=== PATIENT | female | born 1945 | race Caucasian/White ===

== ENCOUNTER 2016-10-19 19:27 | Inpatient (IN) | payer BC, OTHER ==
[~2016-10-19] VITALS: Ht 162.6 cm; Wt 66.0 kg
[~2016-10-19 19:27] MED LIST: ASPEC81; DILT-113 PO
[2016-10-19] MEDS ORDERED: ONDANSETRON INJ 2 MG/ML 2 ML VIAL IV STA (19:51)
[2016-10-19] MEDS ORDERED: SODIUM CHLORIDE 0.9% 1000ML 1,000 ML IV STA (19:51)
--- NOTE | 2016-10-19 19:54 | EMERGENCY ROOM VISIT NOTE ---
History Report prepared by Nini: Inna Fernando Under the Supervision of: Dr. Diego Vega D.O. First contact with patient: 19:42 Chief Complaint: ABDOMINAL PAIN Stated Complaint: STOMACH ACHE Nursing Triage Summary: ABdominal pain lasting more than 24 hours. Had two BM in last 24 hours, not constipated. History of Present Illness The patient is a 71 year old female who presents to the Emergency Room with complaints of constant abdominal pain beginning last night. The patient states that most of her pain is in her upper abdomen. She complains of nausea. She denies any vomiting, diarrhea, urinary symptoms, fever, chest pain, shortness of breath, leg swelling, leg pain. She notes that she has a pace maker and has had a tubal ligation. She notes that she had dental surgeries 10 days ago and is on Aspirin. The patient reports that she has had 2 bowel movements in the last 24 hours and took Gas-X and Mylanta without any relief. Source of History: patient Onset: last night Position: abdomen Timing: constant Associated Symptoms: + nausea, No SOB, No chest pain, No diarrhea, No fevers , No urinary symptoms, No vomiting Note: She denies any leg swelling, leg pain. Review of Systems See HPI for pertinent positives & negatives. A total of 10 systems reviewed and were otherwise negative. Past Medical & Surgical Medical Problems: (1) Duodenitis (2) Pacemaker Family History No pertinent family history stated. Social History Smoking Status: Never Smoker Alcohol Use: heavy Drug Use: none Marital Status: Housing Status: lives with significant other Occupation Status: retired Current/Historical Medications Scheduled Aspirin (Aspirin Ec), 81 MG PO DAILY Atorvastatin (Lipitor), 10 MG PO Q2D Diltiazem Hcl Ext Rel (Tiazac), 180 MG PO DAILY Esomeprazole Magnesium (Nexium 24Hr), 20 MG PO DAILY Metoprolol Succinate (Metoprolol Succinate ER), 25 MG PO DAILY Multiple Vitamin (Multivitamin), 1 TAB PO DAILY Scheduled PRN Clobetasol Propionate (Temovate), 1 APPLN TOP 2XWK PRN for UNDECIDED Tramadol (Ultram), 50 MG PO Q12 PRN for Pain Allergies Coded Allergies: Quinidine (Verified Allergy, Intermediate, DIARRHEA & LIVER ALLERGY, ) Clindamycin (Verified Adverse Reaction, Severe, GOT C-DIF P, 06/28/09) Meperidine (Verified Adverse Reaction, Intermediate, SEVERE NAUSEA & VOMITING, 06/28/09) Codeine (Verified Adverse Reaction, Mild, NAUSEA, 06/28/09) Physical Exam Vital Signs Date Time Temp Pulse Resp B/P Pulse Ox O2 Delivery O2 Flow Rate FiO2 10/19/16 21:19 69 20 144/71 96 10/19/16 19:30 36.8 97 18 131/74 98 Room Air Physical Exam GENERAL: Patient is awake, alert, somewhat anxious appearing and uncomfortable. EYES: The conjunctivae are clear. The pupils are round and reactive. EARS, NOSE, MOUTH AND THROAT: The nose is without any evidence of any deformity. Mucous membranes are moist tongue is midline NECK: The neck is nontender and supple. RESPIRATORY: Normal respiratory effort is noted there is no evidence of wheezing rhonchi or rales CARDIOVASCULAR: Regular rate and rhythm noted there no murmurs rubs or gallops normal S1 normal S2 GASTROINTESTINAL: Abdomen was mildly distended but soft, there was epigastric tenderness to palpation, mild guarding to epigastric region. MUSCULOSKELETAL/EXTREMITIES: There is no evidence of gross deformity full range of motion is noted in the hips and shoulders SKIN: There is no obvious evidence of any rash. There are no petechiae, pallor or cyanosis noted. NEUROLOGIC: Patient is awake alert and oriented x3 Medical Decision & Procedures ER Provider Diagnostic Interpretation: Radiology results as stated below per my review and radiologist interpretation: CHEST ONE VIEW PORTABLE FINDINGS: A dual lead left subclavian pacemaker is in place. Lung volumes are normal. There is no consolidation to suggest pneumonia. Minimal left basilar opacity is suggestive of atelectasis. There is mild cardiomegaly without evidence of pulmonary edema. IMPRESSION: No acute cardiopulmonary findings. Electronically signed by: Kirby Donaldson M.D. 10/19/2016 8:31 PM Dictated Date/Time: 10/19/2016 8:[address] OF THE ABDOMEN AND PELVIS WITH CONTRAST FINDINGS: Pacer leads are partially imaged. The heart is mildly enlarged. There is no biliary or pancreatic ductal dilatation. There is mild periportal edema. The spleen, adrenal glands and kidneys are unremarkable. There are parapelvic cysts. Note is made of moderate infiltration centered on the uncinate process of the pancreas adjacent to the second and third portions of the duodenum. This extends into the root of the mesentery. There is no evidence for a bowel obstruction. No pneumatosis, free air or portal venous gas is present. The appendix is not visualized but there is no right lower quadrant inflammation. There is sigmoid diverticulosis without evidence for acute diverticulitis. No suspicious skeletal lesions identified. Major vasculature of the abdomen and pelvis is patent. IMPRESSION: 1. Moderate infiltration centered on the uncinate process of the pancreas, adjacent to the third portion of the duodenum and extending into the root of the mesentery. The appearance favors acute pancreatitis. Duodenitis could appear similar although is considered less likely. No mass identified however a follow-up CT in one month to ensure resolution is recommended to exclude this possibility. No biliary or pancreatic ductal dilatation. 2. Sigmoid diverticulosis without evidence for acute diverticulitis. Electronically signed by: Kirby Donaldson M.D. 10/19/2016 9:33 PM Dictated Date/Time: 10/19/2016 9:23 PM Laboratory Results 10/19/16 19:55 Red Blood Count 4.37, Mean Corpuscular Volume 93.1, Mean Corpuscular Hemoglobin 31.4, Mean Corpuscular Hemoglobin Concent 33.7, Mean Platelet Volume 10.0, Neutrophils (%) (Auto) 79.1, Lymphocytes (%) (Auto) 7.7, Monocytes (%) (Auto) 12.5, Eosinophils (%) (Auto) 0.3, Basophils (%) (Auto) 0.1, Neutrophils # (Auto ) 10.85, Lymphocytes # (Auto) 1.05, Monocytes # (Auto) 1.72, Eosinophils # (Auto ) 0.04, Basophils # (Auto) 0.02 10/19/16 19:55 Test 10/19/16 19:55 10/19/16 20:17 10/19/16 20:21 10/19/16 21:19 White Blood Count 13.72 K/uL (4.8-10.8) Red Blood Count 4.37 M/uL (4.2-5.4) Hemoglobin 13.7 g/dL (12.0-16.0) Hematocrit 40.7 % (37-47) Mean Corpuscular Volume 93.1 fL (80-100) Mean Corpuscular Hemoglobin 31.4 pg (25-34) Mean Corpuscular Hemoglobin Concent 33.7 g/dl (32-36) Platelet Count 252 K/uL (130-400) Mean Platelet Volume 10.0 fL (7.4-10.4) Neutrophils (%) (Auto) 79.1 % Lymphocytes (%) (Auto) 7.7 % Monocytes (%) (Auto) 12.5 % Eosinophils (%) (Auto) 0.3 % Basophils (%) (Auto) 0.1 % Neutrophils # (Auto) 10.85 K/uL (1.4-6.5) Lymphocytes # (Auto) 1.05 K/uL (1.2-3.4) Monocytes # (Auto) 1.72 K/uL (0.11-0.59) Eosinophils # (Auto) 0.04 K/uL (0-0.5) Basophils # (Auto) 0.02 K/uL (0-0.2) RDW Standard Deviation 46.4 fL (36.4-46.3) RDW Coefficient of Variation 13.6 % (11.5-14.5) Immature Granulocyte % (Auto) 0.3 % Immature Granulocyte # (Auto) 0.04 K/uL (0.00-0.02) Est Creatinine Clear Calc Drug Dose 64.9 ml/min Estimated GFR () 100.8 Estimated GFR (Non- 87.0 BUN/Creatinine Ratio 9.6 (10-20) Calcium Level 8.8 mg/dl (8.5-10.1) Total Bilirubin 1.0 mg/dl (0.2-1) Direct Bilirubin 0.2 mg/dl (0-0.2) Aspartate Amino Transf (AST/SGOT) 17 U/L (15-37) Alanine Aminotransferase (ALT/SGPT) 24 U/L (12-78) Alkaline Phosphatase 83 U/L (45-117) Total Creatine Kinase 48 U/L (26-192) Creatine Kinase MB 0.8 ng/ml (0.5-3.6) Creatine Kinase MB Ratio 1.7 (0-3.0) Troponin I < 0.015 ng/ml (0-0.045) Total Protein 7.5 gm/dl (6.4-8.2) Albumin 3.9 gm/dl (3.4-5.0) Amylase Level 84 U/L (25-115) Lipase 364 U/L (73-393) Bedside Lactic Acid Venous 1.08 mmol/L (0.90-1.70) Bedside Hemoglobin 13.3 g/dl (12.0-16.0) Bedside Hematocrit 39 % (37-47) Bedside Sodium 139 mEq/L (135-144) Bedside Potassium 3.7 mEq/L (3.3-5.0) Bedside Chloride 100 mEq/L (101-112) Bedside Total CO2 25 mEq/l (24-31) Anion Gap 19.0 mmol/L (16-25) Bedside Blood Urea Nitrogen 6 mg/dl (7-18) Bedside Creatinine 0.6 mg/dl (0.6-1.3) Bedside Glucose (other) 111 mg/dl (70-99) Bedside Ionized Calcium (P[place]am) 1.11 mmol/l (1.12-1.32) Urine Color YELLOW Urine Appearance CLEAR (CLEAR) Urine pH 5.5 (4.5-7.5) Urine Specific [place] > 1.045 (1.000-1.030) Urine Protein NEG (NEG) Urine Glucose (UA) NEG (NEG) Urine Ketones 1+ (NEG) Urine Occult Blood NEG (NEG) Urine Nitrite NEG (NEG) Urine Bilirubin NEG (NEG) Urine Urobilinogen NEG (NEG) Urine Leukocyte Esterase NEG (NEG) Laboratory results per my review. Medications Administered Medications (Trade) Dose Ordered Sig/Ras Route Start Time Stop Time Status Last Admin Dose Admin Sodium Chloride (Nss 1000ml) 1,000 ml @ 999 mls/hr Q1H1M STAT IV 10/19/16 19:51 10/19/16 20:51 DC 10/19/16 20:29 999 MLS/HR Ondansetron HCl 4 mg 4 mg NOW STAT IV 10/19/16 19:51 10/19/16 19:53 DC 10/19/16 20:30 4 MG Pantoprazole Sodium/Syringe (Protonix Inj/ Syringe) 10 ml @ 5 mls/min NOW ONCE IV 10/19/16 20:00 10/19/16 20:01 DC 10/19/16 20:42 5 MLS/MIN ECG Indication: abdominal pain Rate (beats per minute): 64 Rhythm: other (atrial paced) Findings: other ([place] coos beats noted, no acute ST segment abnormalities) Comparison ECG Date: 10/12/01 Change: no significant change ED Course 1941: The patient was evaluated in room B10. A complete history and physical examination were performed. 1950: Zofran Inj 4mg IV, NSS 1,000 ml @ 999 mls/hr IV. 1999: Morphine Sulfate 4mg PRN IV pain, Pantoprazole Sodium 40mg/Syringe 10ml @ 5mls/min IV. 2149: I discussed the patient's case with Dr. Gilman. The patient will be evaluated for further management. 2156: Upon reevaluation, the patient is doing well. I discussed results and treatment plan with the patient. She verbalizes agreement and understanding. I spoke with Dr. Gilman of the [facility]. The patient will be evaluated for further management and care. Medical Decision Differential diagnosis: Etiologies such as appendicitis, diverticulitis, PUD, biliary pathology, UTI, pancreatitis, obstruction, mesenteric ischemia, aortic pathology, infections, inflammatory bowel disease, renal colic, as well as others were entertained. Medication Reconciliation: I attest that I have personally reviewed the patient' s current medications list. Blood pressure screening: Patient was found to have an elevated blood pressure that was likely secondary to pain. Nursing notes were reviewed. The patient is a 71-year-old female who presented to the emergency department for epigastric abdominal pain. The patient had very significant pain on palpation. She was treated with IV fluids and IV Protonix the patient did not wish to have any IV pain medication. She was also treated with IV Zofran. She was feeling somewhat improved on subsequent reevaluation. I discussed the patient's laboratory and radiographic studies with her. Because of her elevated white blood cell count as well as the presence of pancreatitis on CT I discussed her case with the on-call [facility] hospitalist group. They've agreed to evaluate the patient in the emergency department for further management and disposition. Consults Time Called: 2145 Consulting Physician: Dr. Gilman - [facility] Returned Call: 2149 I discussed the patient's case with Dr. Gilman. The patient will be evaluated for further management. Impression Primary Impression: Epigastric abdominal pain Additional Impression: Pancreatitis Scribe Attestation The scribe's documentation has been prepared under my direction and personally reviewed by me in its entirety. I confirm that the note above accurately reflects all work, treatment, procedures, and medical decision making performed by me. Departure Information Dispostion Being Evaluated By Hospitalist Referrals ProDiego M.D. (PCP) Patient Instructions My [facility] Problem Qualifiers Additional Impression: Pancreatitis Chronicity: acute Pancreatitis type: unspecified pancreatitis type Acute pancreatitis complication: unspecified Qualified Codes: K85.90 - Acute pancreatitis without necrosis or infection, unspecified
[2016-10-19] MEDS ORDERED: PANTOprazole INJ 40 MG in SYRINGE 0 ML IV ONE (20:00)
[2016-10-19] MEDS ORDERED: MoRPHine SULFATE 4 MG/ML 1 ML CARP\\VIAL IV PRN (20:00)
[2016-10-19 20:07] LABS: BASO % 0.1 %; BASO ABS # 0.02 K/uL (0-0.2); COMPLETE YES; EOS % 0.3 %; HEMATOCRIT 40.7 % (37-47); IG% 0.3 %; LYMPH % 7.7 %; LYMPH ABS # 1.05 K/uL (1.2-3.4); MEAN CELL VOLUME 93.1 fL (80-100); MEAN CORPUSCULAR HEMOGLOBIN 31.4 pg (25-34); MEAN CORPUSCULAR HGB CONC 33.7 g/dl (32-36); MONO % 12.5 %; NEUT % 79.1 %; PLATELET COUNT 252 K/uL (130-400); RED BLOOD COUNT 4.37 M/uL (4.2-5.4); WHITE BLOOD COUNT 13.72 K/uL (4.8-10.8)
[2016-10-19] MEDS ORDERED: ASPI81TA28 PO (20:25)
[2016-10-19 20:27] LABS: ALT/SGPT 24 U/L (12-78); AMYLASE 84 U/L (25-115); AST/SGOT 17 U/L (15-37); BLOOD UREA NITROGEN 7 mg/dl (7-18); BUN/CREATININE RATIO 9.6 (10-20); CALCIUM 8.8 mg/dl (8.5-10.1); CARBON DIOXIDE 28 mmol/L (21-32); CHLORIDE 104 mmol/L (98-107); CREATININE 0.69 mg/dl (0.60-1.20); GLUCOSE 113 mg/dl (70-99); POTASSIUM 3.5 mmol/L (3.5-5.1); SODIUM 139 mmol/L (136-145)
[2016-10-19] MEDS ORDERED: CLOB-77 TOP (20:27)
[2016-10-19] MEDS ORDERED: ATOR10TA82 PO (20:28)
[2016-10-19] MEDS ORDERED: TPRSR/25 PO (20:29)
[2016-10-19] MEDS ORDERED: MULTTAB58 PO (20:30)
[2016-10-19 20:32] LABS: ALKALINE PHOSPHATASE 83 U/L (45-117); CKMB/CK RATIO 1.7 (0-3.0)
[2016-10-19] MEDS ORDERED: ESOM1CAP24 PO (20:32)
--- NOTE | 2016-10-19 20:32 | DIAGNOSTIC IMAGING REPORT ---
CHEST ONE VIEW PORTABLE CLINICAL HISTORY: Abdominal pain. COMPARISON STUDY: No previous studies for comparison. FINDINGS: A dual lead left subclavian pacemaker is in place. Lung volumes are normal. There is no consolidation to suggest pneumonia. Minimal left basilar opacity is suggestive of atelectasis. There is mild cardiomegaly without evidence of pulmonary edema. IMPRESSION: No acute cardiopulmonary findings. Electronically signed by: Kirby Donaldson M.D. 10/19/2016 8:31 PM Dictated Date/Time: 10/19/2016 8:30 PM
[2016-10-19 20:33] LABS: ISTAT CREATININE 0.6 mg/dl (0.6-1.3); ISTAT HEMOGLOBIN 13.3 g/dl (12.0-16.0); ISTAT IONIZED CALCIUM 1.11 mmol/l (1.12-1.32)
[2016-10-19] MEDS ORDERED: TRAM-10 PO (20:34)
[2016-10-19] MEDS ORDERED: OPTIRAY 320 IV PRN (21:15)
--- NOTE | 2016-10-19 21:35 | DIAGNOSTIC IMAGING REPORT ---
CT OF THE ABDOMEN AND PELVIS WITH CONTRAST CLINICAL HISTORY: Upper abdominal pain. COMPARISON STUDY: Right upper quadrant ultrasound August 13, 2015. TECHNIQUE: Following IV administration of 115 mL of Optiray-320, axial images of the abdomen and pelvis were obtained from the lung bases to the proximal femurs. Images were reviewed in the axial, sagittal, and coronal planes. IV contrast was administered without complication. CT DOSE: 282.09 mGy.cm FINDINGS: Pacer leads are partially imaged. The heart is mildly enlarged. There is no biliary or pancreatic ductal dilatation. There is mild periportal edema. The spleen, adrenal glands and kidneys are unremarkable. There are parapelvic cysts. Note is made of moderate infiltration centered on the uncinate process of the pancreas adjacent to the second and third portions of the duodenum. This extends into the root of the mesentery. There is no evidence for a bowel obstruction. No pneumatosis, free air or portal venous gas is present. The appendix is not visualized but there is no right lower quadrant inflammation. There is sigmoid diverticulosis without evidence for acute diverticulitis. No suspicious skeletal lesions identified. Major vasculature of the abdomen and pelvis is patent. IMPRESSION: 1. Moderate infiltration centered on the uncinate process of the pancreas, adjacent to the third portion of the duodenum and extending into the root of the mesentery. The appearance favors acute pancreatitis. Duodenitis could appear similar although is considered less likely. No mass identified however a follow-up CT in one month to ensure resolution is recommended to exclude this possibility. No biliary or pancreatic ductal dilatation. 2. Sigmoid diverticulosis without evidence for acute diverticulitis. Electronically signed by: Kirby Donaldson M.D. 10/19/2016 9:33 PM Dictated Date/Time: 10/19/2016 9:23 PM
[2016-10-19 21:46] LABS: URINE APPEARANCE CLEAR (CLEAR); URINE BILIRUBIN NEG (NEG); URINE COLOR YELLOW; URINE NITRITE NEG (NEG); URINE PH 5.5 (4.5-7.5); URINE SPECIFIC GRAVITY > 1.045 (1.000-1.030); UROBILINOGEN NEG (NEG)
[2016-10-19 21:56] LABS: MANUAL MICROSCOPIC REQUIRED? NO; REVIEW REQ? NO
[2016-10-19] MEDS ORDERED: ONDANSETRON INJ 2 MG/ML 2 ML VIAL IV PRN (22:15)
[2016-10-19] MEDS ORDERED: LORAZEPAM 2 MG/ML 1 ML VIAL IV PRN (22:30)
[2016-10-19 23:40] VITALS: BP 131/74; PULSE 66; TEMP 37.2; O2SAT 96; Ht 162.6 cm; Wt 66.0 kg
[2016-10-19] MEDS: LACTATED RINGER'S 1000ML 1,000 ML IV SCH (23:47)
--- NOTE | 2016-10-19 23:51 | History and Physical ---
History & Physical Date & Time of Service: October 19, 2016 at 23:39 Chief Complaint: Duodenitis, Pancreatitis Primary Care Physician: Diego Rojas M.D. History of Present Illness Source: patient This is a 71 yo f that is presenting to us with abdominal pain which started after dinner at approx 1830 the night before. She states that it primarily affects the epigastric region and is a 6-7/10. It radiates to the back and no specific aggravating or alleviating factors. It was constant but improved after administration of medication here. She has not had this kind of pain before. She denies any fever, chest pain, SOB, change in bowel habits, dysuria, frequency or incontinence with the pain. She did note some nausea however this has since resolved. She was evaluated in the ED and was found to have unremarkable lab work however CT revealed a pancreatitis/ duodenitis. As patient has had intractable pain she will be admitted for further evaluation in the hospital. 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 The wires however were not exchanged and may not be MRI compatible. Aside from this she has not history of and IA/ Stroke/ Cholelithiasis. She has a history of a fibb which she takes ASA for as anticoag. She does drink 1-2 glasses of wine / day. She has a sister who was H. Pylori positive and has had similar symptoms in the past. Past Medical/Surgical History Medical Problems: (1) Pacemaker Status: Chronic Social History Smoking Status: Never Smoker (history of second hand exposure as a child) Smokeless Tobacco Use: No Alcohol Use: daily Drug Use: none Marital Status: Occupational Status: retired Multi-Drug Resistant Organisms History of MDRO: No Allergies Coded Allergies: Quinidine (Verified Allergy, Intermediate, DIARRHEA & LIVER ALLERGY, ) Clindamycin (Verified Adverse Reaction, Severe, GOT C-DIF P, 06/28/09) Meperidine (Verified Adverse Reaction, Intermediate, SEVERE NAUSEA & VOMITING, 06/28/09) Codeine (Verified Adverse Reaction, Mild, NAUSEA, 06/28/09) Home Medications Scheduled Aspirin (Aspirin Ec), 81 MG PO DAILY Atorvastatin (Lipitor), 10 MG PO Q2D Diltiazem Hcl Ext Rel (Tiazac), 180 MG PO DAILY Esomeprazole Magnesium (Nexium 24Hr), 20 MG PO DAILY Metoprolol Succinate (Metoprolol Succinate ER), 25 MG PO DAILY Multiple Vitamin (Multivitamin), 1 TAB PO DAILY Scheduled PRN Clobetasol Propionate (Temovate), 1 APPLN TOP 2XWK PRN for UNDECIDED Tramadol (Ultram), 50 MG PO Q12 PRN for Pain Review of Systems Constitutional: No chills, No fever Eyes: No worsening of vision ENT: No hearing loss Respiratory: No cough, No dyspnea at rest, No dyspnea on exertion, No shortness of breath, No sputum, No wheezing Cardiovascular: No chest pain Abdomen: + nausea, + pain, No constipation, No diarrhea, No vomiting Musculoskeletal: No joint pain, No muscle pain Genitourinary - Female: No dysuria, No hematuria, No urinary incontinence Neurologic: No balance problems, No numbness/tingling, No weakness Psychiatric: No depression symptoms Endocrine: No fatigue Integumentary: No rash Physical Exam Vital Signs Date Time Temp Pulse Resp B/P Pulse Ox O2 Delivery O2 Flow Rate FiO2 10/19/16 22:36 63 16 134/52 95 Room Air 10/19/16 21:19 69 20 144/71 96 10/19/16 19:30 36.8 97 18 131/74 98 Room Air General Appearance: no apparent distress Head: normocephalic, atraumatic Eyes: normal inspection ENT: normal ENT inspection Neck: supple Respiratory/Chest: normal breath sounds, no respiratory distress, no accessory muscle use Cardiovascular: no murmur, + irregularly irregular Abdomen/GI: normal bowel sounds, soft, + tenderness (mildly tender to palpation of the epigastric region), + pertinent finding (neg awad, cva tenderness and mcburney point) Back: normal inspection Extremities/Musculoskelatal: normal inspection, no calf tenderness, no pedal edema Neurologic/Psych: alert, normal mood/affect, oriented x 3 Skin: normal color, warm/dry, no rash Lymphatic: no adenopathy Diagnostics Laboratory Results Results Past 24 Hours Test 10/19/16 19:55 10/19/16 20:17 10/19/16 20:21 10/19/16 21:19 Range/Units White Blood Count 13.72 4.8-10.8 K/uL Red Blood Count 4.37 4.2-5.4 M/uL Hemoglobin 13.7 12.0-16.0 g/dL Hematocrit 40.7 37-47 % Mean Corpuscular Volume 93.1 80-100 fL Mean Corpuscular Hemoglobin 31.4 25-34 pg Mean Corpuscular Hemoglobin Concent 33.7 32-36 g/dl Platelet Count 252 130-400 K/uL Mean Platelet Volume 10.0 7.4-10.4 fL Neutrophils (%) (Auto) 79.1 % Lymphocytes (%) (Auto) 7.7 % Monocytes (%) (Auto) 12.5 % Eosinophils (%) (Auto) 0.3 % Basophils (%) (Auto) 0.1 % Neutrophils # (Auto) 10.85 1.4-6.5 K/uL Lymphocytes # (Auto) 1.05 1.2-3.4 K/uL Monocytes # (Auto) 1.72 0.11-0.59 K/uL Eosinophils # (Auto) 0.04 0-0.5 K/uL Basophils # (Auto) 0.02 0-0.2 K/uL RDW Standard Deviation 46.4 36.4-46.3 fL RDW Coefficient of Variation 13.6 11.5-14.5 % Immature Granulocyte % (Auto) 0.3 % Immature Granulocyte # (Auto) 0.04 0.00-0.02 K/uL Sodium Level 139 136-145 mmol/L Potassium Level 3.5 3.5-5.1 mmol/L Chloride Level 104 98-107 mmol/L Carbon Dioxide Level 28 21-32 mmol/L Anion Gap 7.0 19.0 16-25 mmol/L Blood Urea Nitrogen 7 7-18 mg/dl Creatinine 0.69 0.60-1.20 mg/dl Est Creatinine Clear Calc Drug Dose 64.9 ml/min Estimated GFR () 100.8 Estimated GFR (Non- 87.0 BUN/Creatinine Ratio 9.6 10-20 Random Glucose 113 70-99 mg/dl Calcium Level 8.8 8.5-10.1 mg/dl Total Bilirubin 1.0 0.2-1 mg/dl Direct Bilirubin 0.2 0-0.2 mg/dl Aspartate Amino Transf (AST/SGOT) 17 15-37 U/L Alanine Aminotransferase (ALT/SGPT) 24 12-78 U/L Alkaline Phosphatase 83 45-117 U/L Total Creatine Kinase 48 26-192 U/L Creatine Kinase MB 0.8 0.5-3.6 ng/ml Creatine Kinase MB Ratio 1.7 0-3.0 Troponin I < 0.015 0-0.045 ng/ml Total Protein 7.5 6.4-8.2 gm/dl Albumin 3.9 3.4-5.0 gm/dl Amylase Level 84 25-115 U/L Lipase 364 73-393 U/L Bedside Lactic Acid Venous 1.08 0.90-1.70 mmol/L Bedside Hemoglobin 13.3 12.0-16.0 g/dl Bedside Hematocrit 39 37-47 % Bedside Sodium 139 135-144 mEq/L Bedside Potassium 3.7 3.3-5.0 mEq/L Bedside Chloride 100 101-112 mEq/L Bedside Total CO2 25 24-31 mEq/l Bedside Blood Urea Nitrogen 6 7-18 mg/dl Bedside Creatinine 0.6 0.6-1.3 mg/dl Bedside Glucose (other) 111 70-99 mg/dl Bedside Ionized Calcium (Poonam) 1.11 1.12-1.32 mmol/l Urine Color YELLOW Urine Appearance CLEAR CLEAR Urine pH 5.5 4.5-7.5 Urine Specific [place] > 1.045 1.000-1.030 Urine Protein NEG NEG Urine Glucose (UA) NEG NEG Urine Ketones 1+ NEG Urine Occult Blood NEG NEG Urine Nitrite NEG NEG Urine Bilirubin NEG NEG Urine Urobilinogen NEG NEG Urine Leukocyte Esterase NEG NEG Diagnostic Radiology CT OF THE ABDOMEN AND PELVIS WITH CONTRAST CLINICAL HISTORY: Upper abdominal pain. COMPARISON STUDY: Right upper quadrant ultrasound August 13, 2015. TECHNIQUE: Following IV administration of 115 mL of Optiray-320, axial images of the abdomen and pelvis were obtained from the lung bases to the proximal femurs. Images were reviewed in the axial, sagittal, and coronal planes. IV contrast was administered without complication. CT DOSE: 282.09 mGy.cm FINDINGS: Pacer leads are partially imaged. The heart is mildly enlarged. There is no biliary or pancreatic ductal dilatation. There is mild periportal edema. The spleen, adrenal glands and kidneys are unremarkable. There are parapelvic cysts. Note is made of moderate infiltration centered on the uncinate process of the pancreas adjacent to the second and third portions of the duodenum. This extends into the root of the mesentery. There is no evidence for a bowel obstruction. No pneumatosis, free air or portal venous gas is present. The appendix is not visualized but there is no right lower quadrant inflammation. There is sigmoid diverticulosis without evidence for acute diverticulitis. No suspicious skeletal lesions identified. Major vasculature of the abdomen and pelvis is patent. IMPRESSION: 1. Moderate infiltration centered on the uncinate process of the pancreas, adjacent to the third portion of the duodenum and extending into the root of the mesentery. The appearance favors acute pancreatitis. Duodenitis could appear similar although is considered less likely. No mass identified however a follow-up CT in one month to ensure resolution is recommended to exclude this possibility. No biliary or pancreatic ductal dilatation. 2. Sigmoid diverticulosis without evidence for acute diverticulitis. [~ rep ct add3]] CHEST ONE VIEW PORTABLE CLINICAL HISTORY: Abdominal pain. COMPARISON STUDY: No previous studies for comparison. FINDINGS: A dual lead left subclavian pacemaker is in place. Lung volumes are normal. There is no consolidation to suggest pneumonia. Minimal left basilar opacity is suggestive of atelectasis. There is mild cardiomegaly without evidence of pulmonary edema. IMPRESSION: No acute cardiopulmonary findings. Impression Assessment and Plan This is a 71 yo f that is suffering from pancreatitis/ duodenitis and requires further evaluation Pancreatitis secondary to obstruction vs alcohol use - Med surg admission - repeat CMP and lipase in am - MRCP if compatible -H Pylori ag - trend CBC as mild elevation in WBC - LR @ 100cc/h while NPO - Consider gastro consult based on results of testing A fibb- rate controlled; Pacer in place - Device is MRI compatible but unsure of wires, radiology aware - continue ASA once not NPO - Continue diltiazem and Toprol - while NPO lopressor prn IV Hyperlipidemia -continue atorvastatin Alcohol Abuse - protocol for at risk DVT prophylaxis - SCD in case of procedure requirement Level of Care Med/Surg VTE Prophylaxis VTE Risk Assessment Done? Y/N: Yes Risk Level: High Given or contraindicated: SCD's Note Total Time: Critical Care 30 - 74 minutes Additional Copies To Diego Rojas M.D. Assessment and Plan Attending Addendum: I have physically seen and examined this patient, have directed their medical care, have supervised the medical residents activities, and agree with the H&P as noted above, with the following changes: NONE
[2016-10-20] MEDS ORDERED: MoRPHine SULFATE 4 MG/ML 1 ML CARP\\VIAL IV PRN
[2016-10-20] MEDS ORDERED: METOPROLOL TARTRATE 1 MG/ML VIAL IV PRN
[2016-10-20] MEDS: TRAMADOL HCL 50 MG TAB PO PRN ×2 (00:04→23:29)
[2016-10-20 07:15] LABS: HEMATOCRIT 36.6 % (37-47); MEAN CELL VOLUME 92.7 fL (80-100); MEAN CORPUSCULAR HEMOGLOBIN 29.9 pg (25-34); MEAN CORPUSCULAR HGB CONC 32.2 g/dl (32-36); MEAN PLATELET VOLUME 9.7 fL (7.4-10.4); PLATELET COUNT 211 K/uL (130-400); RED BLOOD COUNT 3.95 M/uL (4.2-5.4); WHITE BLOOD COUNT 13.94 K/uL (4.8-10.8)
[2016-10-20 07:41] VITALS: BP 115/70; PULSE 64; TEMP 38; O2SAT 93
[2016-10-20] MEDS: PANTOprazole SOD 40 MG TAB PO SCH (07:50)
[2016-10-20] MEDS: DILTIAZEM HCL (TIAzac) 180 MG CAPCR PO SCH (07:51)
[2016-10-20] MEDS: METOPROLOL SUCC 25MG EXT REL TAB PO SCH (07:51)
[2016-10-20] MEDS: MULTIVITAMIN TAB PO SCH (07:51)
[2016-10-20 07:52] LABS: BUN/CREATININE RATIO 8.9 (10-20); CREATININE 0.61 mg/dl (0.60-1.20); POTASSIUM 3.7 mmol/L (3.5-5.1)
[2016-10-20] MEDS: ASPIRIN 81 MG ECTAB PO SCH (07:52)
[2016-10-20] MEDS: ATORVASTATIN 10 MG TAB PO SCH (07:52)
[2016-10-20] MEDS ORDERED: PIPERACILL/TAZOBAC CONSULT ACTIVE PRN (08:45)
[2016-10-20] MEDS ORDERED: PIPERACILL/TAZOBAC IV 3.375 GM in DEXTROSE 5% 100ML IV ONE (08:45)
[2016-10-20] MEDS: KETOROLAC TROMETHAMINE 15 MG/ML VIAL IV. PRN ×2 (09:21→18:03)
[2016-10-20] MEDS: LACTATED RINGER'S 1000ML 1,000 ML IV SCH (09:26)
[2016-10-20 09:47] LABS: ESTIMATED AVERAGE GLUCOSE 114 mg/dl; HA1C FLAG Normal (Normal)
[2016-10-20 10:13] VITALS: TEMP 37
[2016-10-20] MEDS ORDERED: ACETAMINOPHEN 500 MG TAB PO PRN (10:30)
[2016-10-20] MEDS ORDERED: NURSING VERBAL MED ORDER ONE ×2 (10:30→17:00)
--- NOTE | 2016-10-20 11:52 | Family Medicine Progress Note ---
Progress Note Date of Service October 20, 2016. Subjective Pt evaluation today including: conversation w/ patient, physical exam Pain: Controlled at this time Voiding: no voiding problems, no incontinence No new complaints Still having abdominal pain through improved; prefers to avoid morphine due to nausea Notes she drinks 7-14 units EtOH weekly; mostly wine; no issues with withdrawals ; last drink was 5 days ago Denies issues with gallbladder Has colonoscopies done at [facility] via Dr. Bolanos; is on 5 year follow-up regimen due to family history of bowel ca. Nursing notes patient had fever this morning. Constitutional: + fever, No chills Eyes: No eye pain, No redness, No worsening of vision ENT: No hearing loss, No nasal symptoms, No sore throat Respiratory: No cough, No sputum, No wheezing Cardiovascular: No chest pain, No claudication, No palpitations Abdomen: + pain, No constipation, No diarrhea, No nausea, No vomiting Musculoskeletal: No joint pain, No muscle pain Female : No dysuria, No urinary frequency Neurologic: No numbness/tingling, No paralysis, No weakness Psychiatric: No anxiety, No insomnia Heme: No clotting problems, No swollen lymph nodes Endo: No excessive thirst, No fatigue Skin: No color change, No new/changing skin lesions, No rash Medications Current Inpatient Medications Medications (Trade) Dose Ordered Sig/Ras Route Start Time Stop Time Status Last Admin Dose Admin Ioversol (Optiray 320) 115 ml UD PRN IV 10/19/16 21:15 10/23/16 21:14 Ondansetron HCl 4 mg 4 mg Q6H PRN IV 10/19/16 22:15 11/18/16 22:14 Lactated Ringer's (Lr 1000ml) 1,000 ml @ 100 mls/hr Q10H IV 10/19/16 23:30 11/18/16 23:29 10/20/16 09:26 100 MLS/HR Lorazepam (Ativan Inj) 1 mg ONE PRN IV 10/19/16 22:30 Aspirin (Ecotrin Tab) 81 mg DAILY PO 10/20/16 08:00 11/19/16 07:59 10/20/16 07:52 81 MG Atorvastatin Calcium (Lipitor Tab) 10 mg Q2D@0900 PO 10/20/16 09:00 11/19/16 08:59 10/20/16 07:52 10 MG Diltiazem HCl (TIAzac CAP) 180 mg DAILY PO 10/20/16 08:00 11/19/16 07:59 10/20/16 07:51 180 MG Metoprolol Succinate (Toprol Xl Tab) 25 mg DAILY PO 10/20/16 08:00 11/19/16 07:59 10/20/16 07:51 25 MG Multivitamins (Multivitamin Tab) 1 tab DAILY PO 10/20/16 08:00 11/19/16 07:59 10/20/16 07:51 1 TAB Tramadol HCl (Ultram Tab) 50 mg Q12 PRN PO 10/20/16 00:00 11/19/16 00:00 10/20/16 00:04 50 MG Pantoprazole Sodium (Protonix Tab) 40 mg QAM PO 10/20/16 08:00 11/19/16 07:59 10/20/16 07:50 40 MG Morphine Sulfate 4 mg 4 mg Q4H PRN IV 10/20/16 00:00 11/03/16 00:00 Piperacillin Sod/ Tazobactam Sod/ Dextrose (Zosyn Iv/D5 100ml) 115 ml @ 28.75 mls/ hr Q8H IV 10/20/16 14:00 10/30/16 13:59 Future Hold Ketorolac Tromethamine (Toradol Inj) 15 mg Q6H PRN IV. 10/20/16 08:30 10/25/16 08:29 10/20/16 09:21 15 MG Piperacillin Sod/ Tazobactam Sod (Consult) 1 ea UD PRN N/A 10/20/16 08:45 11/19/16 08:44 Future Hold Acetaminophen (Tylenol Tab) 1,000 mg Q8H PRN PO 10/20/16 10:30 11/19/16 10:29 Objective Vital Signs Date Time Temp Pulse Resp B/P Pulse Ox O2 Delivery O2 Flow Rate FiO2 10/20/16 07:41 38.0 64 16 115/70 93 Room Air 10/19/16 23:40 37.2 66 20 131/74 96 Room Air 10/19/16 23:40 Room Air 10/19/16 23:40 96 Room Air 10/19/16 22:36 63 16 134/52 95 Room Air 10/19/16 21:19 69 20 144/71 96 10/19/16 19:30 36.8 97 18 131/74 98 Room Air Physical Exam General Appearance: WD/WN, no apparent distress Eyes: normal inspection, EOMI ENT: normal ENT inspection, hearing grossly normal, pharynx normal Neck: supple, no adenopathy, no JVD Respiratory/Chest: lungs clear, no respiratory distress Cardiovascular: regular rate, rhythm, no gallop, no murmur Abdomen: normal bowel sounds, soft, no organomegaly, + tenderness (epigastric and R and L upper quadrants; cannot palpate deep due to tenderness) Extremities: non-tender, no pedal edema Neurologic/Psychiatric: alert, normal mood/affect, oriented x 3 Skin: normal color, warm/dry, no rash Lymphatic: no adenopathy Laboratory Results Last 24 Hours Test 10/19/16 19:55 10/19/16 20:17 10/19/16 20:21 10/19/16 21:19 White Blood Count 13.72 K/uL Red Blood Count 4.37 M/uL Hemoglobin 13.7 g/dL Hematocrit 40.7 % Mean Corpuscular Volume 93.1 fL Mean Corpuscular Hemoglobin 31.4 pg Mean Corpuscular Hemoglobin Concent 33.7 g/dl Platelet Count 252 K/uL Mean Platelet Volume 10.0 fL Neutrophils (%) (Auto) 79.1 % Lymphocytes (%) (Auto) 7.7 % Monocytes (%) (Auto) 12.5 % Eosinophils (%) (Auto) 0.3 % Basophils (%) (Auto) 0.1 % Neutrophils # (Auto) 10.85 K/uL Lymphocytes # (Auto) 1.05 K/uL Monocytes # (Auto) 1.72 K/uL Eosinophils # (Auto) 0.04 K/uL Basophils # (Auto) 0.02 K/uL RDW Standard Deviation 46.4 fL RDW Coefficient of Variation 13.6 % Immature Granulocyte % (Auto) 0.3 % Immature Granulocyte # (Auto) 0.04 K/uL Sodium Level 139 mmol/L Potassium Level 3.5 mmol/L Chloride Level 104 mmol/L Carbon Dioxide Level 28 mmol/L Anion Gap 7.0 mmol/L 19.0 mmol/L Blood Urea Nitrogen 7 mg/dl Creatinine 0.69 mg/dl Est Creatinine Clear Calc Drug Dose 64.9 ml/min Estimated GFR () 100.8 Estimated GFR (Non- 87.0 BUN/Creatinine Ratio 9.6 Random Glucose 113 mg/dl Calcium Level 8.8 mg/dl Total Bilirubin 1.0 mg/dl Direct Bilirubin 0.2 mg/dl Aspartate Amino Transf (AST/SGOT) 17 U/L Alanine Aminotransferase (ALT/SGPT) 24 U/L Alkaline Phosphatase 83 U/L Total Creatine Kinase 48 U/L Creatine Kinase MB 0.8 ng/ml Creatine Kinase MB Ratio 1.7 Troponin I < 0.015 ng/ml Total Protein 7.5 gm/dl Albumin 3.9 gm/dl Amylase Level 84 U/L Lipase 364 U/L Bedside Lactic Acid Venous 1.08 mmol/L Bedside Hemoglobin 13.3 g/dl Bedside Hematocrit 39 % Bedside Sodium 139 mEq/L Bedside Potassium 3.7 mEq/L Bedside Chloride 100 mEq/L Bedside Total CO2 25 mEq/l Bedside Blood Urea Nitrogen 6 mg/dl Bedside Creatinine 0.6 mg/dl Bedside Glucose (other) 111 mg/dl Bedside Ionized Calcium (Poonam) 1.11 mmol/l Urine Color YELLOW Urine Appearance CLEAR Urine pH 5.5 Urine Specific [place] > 1.045 Urine Protein NEG Urine Glucose (UA) NEG Urine Ketones 1+ Urine Occult Blood NEG Urine Nitrite NEG Urine Bilirubin NEG Urine Urobilinogen NEG Urine Leukocyte Esterase NEG Test 10/20/16 06:59 10/20/16 08:00 10/20/16 08:55 10/20/16 11:29 White Blood Count 13.94 K/uL Red Blood Count 3.95 M/uL Hemoglobin 11.8 g/dL Hematocrit 36.6 % Mean Corpuscular Volume 92.7 fL Mean Corpuscular Hemoglobin 29.9 pg Mean Corpuscular Hemoglobin Concent 32.2 g/dl RDW Standard Deviation 47.1 fL RDW Coefficient of Variation 13.9 % Platelet Count 211 K/uL Mean Platelet Volume 9.7 fL Sodium Level 142 mmol/L Potassium Level 3.7 mmol/L Chloride Level 108 mmol/L Carbon Dioxide Level 27 mmol/L Anion Gap 7.0 mmol/L Blood Urea Nitrogen 5 mg/dl Creatinine 0.61 mg/dl Est Creatinine Clear Calc Drug Dose 77.9 ml/min Estimated GFR () 105.0 Estimated GFR (Non- 90.6 BUN/Creatinine Ratio 8.9 Random Glucose 96 mg/dl Calcium Level 8.0 mg/dl Total Bilirubin 0.9 mg/dl Aspartate Amino Transf (AST/SGOT) 15 U/L Alanine Aminotransferase (ALT/SGPT) 21 U/L Alkaline Phosphatase 67 U/L Total Protein 6.2 gm/dl Albumin 3.1 gm/dl Globulin 3.1 gm/dl Albumin/Globulin Ratio 1.0 Lipase 182 U/L Bedside Glucose 106 mg/dl 97 mg/dl Estimated Average Glucose 114 mg/dl Hemoglobin A1c 5.6 % Triglycerides Level 56 mg/dl Cholesterol Level 129 mg/dl HDL Cholesterol 66 mg/dl LDL Cholesterol, Calculated 52 mg/dl VLDL Cholesterol, Calculated 11 mg/dl Cholesterol/HDL Ratio 2.0 Assessment and Plan This is a 71 yo f that is suffering from pancreatitis/ duodenitis and requires further evaluation 71 year old female with acute pancreatitis Our plan for her is as follows Pancreatitis with Duodenitis - DDx: EtOH, gallstone, viral, hypercalcemia, hypertriglyceridemia EtOH: no evidence of alcohol abuse though still worth keeping in differential Gallstone: No bile duct dilatation on CT, possible stone has passed, no noted stones in gallbladder on CT Hypercalcemia: No evidence of hypercalcemia Hypertriglyceridemia: no evidence of elevated triglycerides - Lipase normal at 360 on admission and trending downwards - MRCP contra-indicated due to pacemaker - CT showed involvement of 3rd part of duodenum - NPO except meds - Morphine +/- Zofran if nauseated - Continue RL at 100 ml/hr - Febrile this morning Blood cultures obtained; 1 dose Zosyn given but discontinued until source more clear UA normal Monitor fever curve: Tylenol 1000 q 8 hrs for pain or fever - GI consult for further recommendations Afib with Pacer in place - Continue Metoprolol and Diltiazem - Contine ASA Hyperlipidemia - Continue atorvastatin Hx of Alcohol Abuse - protocol for at risk - Low index of suspicion for EtOH dependence and risk for withdrawal at this time DVT prophylaxis - SCD in case of procedure requirement Disposition - Med/Surg Continued [facility] stay due to: fever, inadequate oral pain control Discharge planning: home Reviewed: Pt Seen/Exam by Me History feeling better since admission but still with significant pain in upper abdomen Constitutional: denies: fever Respiratory: negative: short of breath Cardiovascular: denies chest pain General Appearance: no apparent distress Respiratory: lungs clear, no respiratory distress Cardiovascular: regular rate, rhythm Gastrointestinal: normal bowel sounds, soft, tenderness (epigastric) Neurologic/Psychiatric: alert, oriented x 3 Skin Characteristics: warm/dry Assessment/Plan I have reviewed the medical record and performed a history and physical examination of this patient today. I have discussed the case with Dr. Wright. The above note reflects my findings, conclusions, and recommendations.
[2016-10-20 11:59] VITALS: BP 104/62; PULSE 66; TEMP 36.7; O2SAT 90
[2016-10-20] MEDS ORDERED: ACETAMINOPHEN IV 1000MG/100ML IV PRN (12:15)
[2016-10-20] MEDS ORDERED: PIPERACILL/TAZOBAC IV 3.375 GM in DEXTROSE 5% 100ML 100 ML IV SCH (14:00)
[2016-10-20 15:45] VITALS: BP_SYST 89; BP_SYST 95; BP_DIAS 55; BP_DIAS 58; PULSE 65; TEMP 36.7; O2SAT 91
[2016-10-20] MEDS ORDERED: SODIUM CHLORIDE 0.9% 1000ML 1,000 ML IV SCH (17:15)
[2016-10-20 18:01] VITALS: BP 108/62; PULSE 63; O2SAT 91
[2016-10-20] MEDS ORDERED: ACETAMINOPHEN 325 MG TAB PO PRN (18:15)
[2016-10-20] MEDS ORDERED: ACETAMINOPHEN IV 650 MG in EMPTY BAG 0 ML IV PRN (18:30)
[2016-10-20] MEDS: D5W AND 1/2NSS + 20MEQ KCL 1,000 ML IV SCH (18:51)
--- NOTE | 2016-10-20 19:12 | GASTROINTESTINAL CONSULTATION ---
DATE OF CONSULTATION: 10/20/2016 GASTROENTEROLOGY INPATIENT CONSULTATION CHIEF COMPLAINT: Epigastric diffuse abdominal pain with nausea, abnormal CT imaging of duodenum and pancreas. HISTORY OF PRESENT ILLNESS: Mrs. Gallegos is a 71-year-old white female who presented with acute onset of epigastric abdominal pain that radiated around the sides and into the back. Pain was also diffuse in nature. She had a friend who had a recent viral illness and initially thought that this was a similar presentation; however, her symptoms persisted for nearly 24 hours and she presented to the Emergency Room for further evaluation. The patient denies any prior history of pancreatitis, although may report a remote history of peptic ulcer disease, perhaps diagnosed by a barium study. 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 The patient denies any weight loss, vomiting, hematemesis, coffee-ground emesis, melena or bright red blood per rectum. Her alcohol intake is generally a glass of wine or 2 on most days of the week. She denies tobacco usage. She has colonoscopies approximately every 5 years. Initially, she was found to have a couple of polyps by her history, although the details are not clear. The colonoscopies have been performed by Dr. Bolanos, recently. The patient denies any chest pain, palpitations. PAST MEDICAL HISTORY: Significant for pacemaker placement, hypercholesterolemia, reflux and hypertension. PAST SURGICAL HISTORY: Surgically, the patient's gallbladder and appendix are intact. She has had no prior abdominal surgeries. ALLERGIES: SHE IS ALLERGIC TO QUINIDINE, CLINDAMYCIN, DEMEROL AND CODEINE. CURRENT MEDICATIONS AT HOME: Include aspirin, atorvastatin, diltiazem, Nexium, metoprolol and multivitamin. She is also on p.r.n. tramadol for pain. FAMILY HISTORY: Negative for chronic pancreatic or intestinal disorders. There is no history of colorectal cancer by her description. REVIEW OF SYSTEMS: Otherwise noncontributory based on 14-point exam except for mentioned above. The patient denies hematuria, dysuria, rashes, disturbance in gait. There are no thyroid abnormalities. PHYSICAL EXAMINATION: GENERAL: Today, the patient is awake, alert and oriented x3. VITAL SIGNS: On admission, the patient's blood pressure was 131/74. She was afebrile at 36.8, heart rate 97, respirations 18, 98% on room air. HEENT: Sclerae are anicteric, conjunctiva moist. Oral mucosa moist. NECK: There is no cervical or supraclavicular adenopathy. I do not appreciate thyromegaly. HEART: Normal S1, S2. LUNGS: Clear to auscultation without rales, rhonchi or wheezes. ABDOMEN: Soft, mildly tender in the epigastrium above the level of the umbilicus without rebound or guarding. There is no hepatosplenomegaly. I do not appreciate abdominal bruits or masses; there are no ventral wall hernias. EXTREMITIES: Without clubbing, cyanosis or edema. RECTAL: Deferred at this time. LABORATORY STUDIES: On admission - white count is 13.7, hemoglobin 13.7, MCV 93, platelets 252,000. BUN and creatinine are 7 and 0.7 with normal potassium 3.5. Total bilirubin 1.0, direct 0.2; AST 17, ALT 24, alkaline phosphatase 83. CK 48, troponin less than 0.015. Amylase was normal at 84 and lipase of 364. Calcium level is normal at 8.8. Albumin was 3.9., Ionized calcium was normal at 1.1. UA was negative except for ketones. There is no evidence of blood, leukocyte esterase and nitrites noted in the ER. IMAGING DATA: CT scan revealed a moderate infiltrative process near the uncinate process of the pancreas and adjacent to the second and third portion of the duodenum. This extends into the root of the mesentery. There is no evidence of a bowel obstruction. There are no focal liver masses. The pancreas appears normal without ductal dilation and there is no biliary dilation. Sigmoid diverticulosis noted. A specific mass in the CT is not identified. IMPRESSION: A 71-year-old white female with acute onset of symptoms that were epigastric in nature, radiating to the back. There is a remote history of possible peptic ulcer disease, although the patient has been on Nexium in the past and currently takes it at home. The differential diagnosis includes peptic ulcer disease, possible pancreatitis, although there are no structural changes to the pancreas and pancreatic enzymes have been normal. Her alcohol use is mild to moderate in nature. PLAN AND RECOMMENDATIONS: I made the following recommendations: I believe an upper endoscopy would be helpful and will make arrangements for this tomorrow with fasting after midnight except for medications. Would keep the patient with ice chips only through tonight. Depending on the findings and the patient's clinical response to conservative therapy, at some point repeating cross-sectional imaging with CT may be prudent in approximately 1-2 months to see if this process is persisting. There is no chronic weight loss for the patient and she was otherwise in good health up until this acute presentation. An ischemic event is possible, although less likely but at some point if this persists, a vascular imaging may be beneficial. Further recommendations to follow.
[2016-10-21] VITALS (11 sets, daily range): BP systolic 104–123; BP diastolic 57–69; PULSE 59–68; TEMP 36.9–37.6; O2SAT 89–96
[2016-10-21] MEDS: D5W AND 1/2NSS + 20MEQ KCL 1,000 ML IV SCH (03:57)
[2016-10-21] MEDS: KETOROLAC TROMETHAMINE 15 MG/ML VIAL IV. PRN ×2 (07:31→20:40)
[2016-10-21] MEDS: PANTOprazole SOD 40 MG TAB PO SCH (07:34)
[2016-10-21] MEDS: MULTIVITAMIN TAB PO SCH (07:34)
[2016-10-21] MEDS: METOPROLOL SUCC 25MG EXT REL TAB PO SCH (07:34)
[2016-10-21] MEDS: DILTIAZEM HCL (TIAzac) 180 MG CAPCR PO SCH (07:34)
[2016-10-21] MEDS: ASPIRIN 81 MG ECTAB PO SCH (07:35)
[2016-10-21 08:12] LABS: HEMATOCRIT 31.7 % (37-47); MEAN CELL VOLUME 93.2 fL (80-100); MEAN CORPUSCULAR HEMOGLOBIN 30.9 pg (25-34); MEAN CORPUSCULAR HGB CONC 33.1 g/dl (32-36); PLATELET COUNT 196 K/uL (130-400); WHITE BLOOD COUNT 10.97 K/uL (4.8-10.8)
[2016-10-21 08:47] LABS: BUN/CREATININE RATIO 14.2 (10-20); CREATININE 0.64 mg/dl (0.60-1.20); MAGNESIUM 2.2 mg/dl (1.8-2.4); POTASSIUM 3.8 mmol/L (3.5-5.1)
[2016-10-21 08:50] LABS: ALB/GLOB RATIO 0.8 (0.9-2); PHOSPHORUS 2.2 mg/dl (2.5-4.9)
[2016-10-21 08:51] LABS: CALCIUM 8.2 mg/dl (8.5-10.1)
--- NOTE | 2016-10-21 12:11 | DIAGNOSTIC IMAGING REPORT ---
CHEST 2 VIEWS ROUTINE CLINICAL HISTORY: Hypoxia. COMPARISON STUDY: Chest radiograph October 19, 2016. FINDINGS: A dual lead left subclavian pacemaker is in place. There is no pneumothorax there are small bilateral pleural effusions which have developed since prior exam. No consolidation is identified to suggest pneumonia. There is no evidence of pulmonary edema. IMPRESSION: 1. Interval development of small bilateral pleural effusions. 2. No radiographic evidence of pulmonary edema. Electronically signed by: Kirby Donaldson M.D. 10/21/2016 12:09 PM Dictated Date/Time: 10/21/2016 12:08 PM
--- NOTE | 2016-10-21 12:21 | Family Medicine Progress Note ---
Progress Note Date of Service October 21, 2016. Subjective Pt evaluation today including: conversation w/ patient, physical exam, chart review, lab review Pain: Controlled PO Intake: NPO Voiding: no voiding problems Doing better Still some epigastric discomfort, controlled with Toradol Nurse notes mild hypoxa, improves with 3 L Patient does not note shortness of breath coughing or fevers Additional Comments: A 10 point review of systems was negative unless stated above. Medications Current Inpatient Medications Medications (Trade) Dose Ordered Sig/Ras Route Start Time Stop Time Status Last Admin Dose Admin Ioversol (Optiray 320) 115 ml UD PRN IV 10/19/16 21:15 10/23/16 21:14 Ondansetron HCl (Zofran Inj) 4 mg Q6H PRN IV 10/19/16 22:15 11/18/16 22:14 Lorazepam (Ativan Inj) 1 mg ONE PRN IV 10/19/16 22:30 Aspirin (Ecotrin Tab) 81 mg DAILY PO 10/20/16 08:00 11/19/16 07:59 10/20/16 07:52 81 MG Atorvastatin Calcium (Lipitor Tab) 10 mg Q2D@0900 PO 10/20/16 09:00 11/19/16 08:59 10/20/16 07:52 10 MG Diltiazem HCl (TIAzac CAP) 180 mg DAILY PO 10/20/16 08:00 11/19/16 07:59 10/21/16 07:34 180 MG Metoprolol Succinate (Toprol Xl Tab) 25 mg DAILY PO 10/20/16 08:00 11/19/16 07:59 10/21/16 07:34 25 MG Multivitamins (Multivitamin Tab) 1 tab DAILY PO 10/20/16 08:00 11/19/16 07:59 10/21/16 07:34 1 TAB Tramadol HCl (Ultram Tab) 50 mg Q12 PRN PO 10/20/16 00:00 11/19/16 00:00 10/20/16 23:29 50 MG Pantoprazole Sodium (Protonix Tab) 40 mg QAM PO 10/20/16 08:00 11/19/16 07:59 10/21/16 07:34 40 MG Morphine Sulfate 4 mg 4 mg Q4H PRN IV 10/20/16 00:00 11/03/16 00:00 Piperacillin Sod/ Tazobactam Sod/ Dextrose (Zosyn Iv/D5 100ml) 115 ml @ 28.75 mls/ hr Q8H IV 10/20/16 14:00 10/30/16 13:59 Future Hold Ketorolac Tromethamine (Toradol Inj) 15 mg Q6H PRN IV. 10/20/16 08:30 10/25/16 08:29 10/21/16 07:31 15 MG Piperacillin Sod/ Tazobactam Sod 1 ea 1 ea UD PRN N/A 10/20/16 08:45 11/19/16 08:44 Future Hold Potassium Chloride/Dextrose/ Sod Cl (D5W And 1/2nss + 20meq KCl) 1,000 ml @ 75 mls/hr [id number] IV 10/20/16 18:15 11/19/16 18:14 10/21/16 03:57 100 MLS/HR Acetaminophen 650 mg 650 mg Q4H PRN PO 10/20/16 18:15 11/19/16 18:14 Acetaminophen/ Empty Bag (Ofirmev Iv/ Empty Iv Bag 100ml) 65 ml @ 260 mls/hr Q6H PRN IV 10/20/16 18:30 Objective Vital Signs Date Time Temp Pulse Resp B/P Pulse Ox O2 Delivery O2 Flow Rate FiO2 10/21/16 10:25 96 Nasal Cannula 3.0 10/21/16 10:20 92 Nasal Cannula 2.0 10/21/16 10:15 89 Room Air 10/21/16 09:42 36.9 91 Room Air 10/21/16 09:24 37.6 68 18 113/69 90 Room Air 10/21/16 08:00 Room Air 10/21/16 07:36 37.6 68 18 113/69 90 Room Air 10/21/16 00:18 36.9 59 16 123/64 96 Room Air 10/21/16 00:00 91 Room Air 10/20/16 18:01 63 18 108/62 91 10/20/16 17:10 Room Air 10/20/16 15:45 36.7 65 16 95/58 91 Room Air 89/55 Physical Exam General Appearance: WD/WN, no apparent distress Eyes: normal inspection, EOMI ENT: normal ENT inspection, pharynx normal Neck: supple, no adenopathy, no JVD Respiratory/Chest: lungs clear, + pertinent finding (mildly reduced breath sounds at the bases) Cardiovascular: regular rate, rhythm, no gallop, no murmur Abdomen: normal bowel sounds, non tender, soft Extremities: non-tender, no pedal edema Neurologic/Psychiatric: alert, normal mood/affect, oriented x 3 Skin: normal color, warm/dry, no rash Lymphatic: no adenopathy Laboratory Results Last 24 Hours Test 10/20/16 17:45 10/21/16 00:39 10/21/16 07:50 10/21/16 11:29 Bedside Glucose 71 mg/dl 89 mg/dl 98 mg/dl 101 mg/dl White Blood Count 10.97 K/uL Red Blood Count 3.40 M/uL Hemoglobin 10.5 g/dL Hematocrit 31.7 % Mean Corpuscular Volume 93.2 fL Mean Corpuscular Hemoglobin 30.9 pg Mean Corpuscular Hemoglobin Concent 33.1 g/dl RDW Standard Deviation 47.7 fL RDW Coefficient of Variation 14.0 % Platelet Count 196 K/uL Mean Platelet Volume 10.0 fL Sodium Level 142 mmol/L Potassium Level 3.8 mmol/L Chloride Level 110 mmol/L Carbon Dioxide Level 24 mmol/L Anion Gap 8.0 mmol/L Blood Urea Nitrogen 9 mg/dl Creatinine 0.64 mg/dl Est Creatinine Clear Calc Drug Dose 74.3 ml/min Estimated GFR () 103.3 Estimated GFR (Non- 89.2 BUN/Creatinine Ratio 14.2 Random Glucose 94 mg/dl Calcium Level 8.2 mg/dl Phosphorus Level 2.2 mg/dl Magnesium Level 2.2 mg/dl Total Bilirubin 0.5 mg/dl Aspartate Amino Transf (AST/SGOT) 18 U/L Alanine Aminotransferase (ALT/SGPT) 20 U/L Alkaline Phosphatase 67 U/L Total Protein 5.9 gm/dl Albumin 2.7 gm/dl Globulin 3.2 gm/dl Albumin/Globulin Ratio 0.8 Lipase 129 U/L Assessment and Plan This is a 71 yo f that is suffering from pancreatitis/duodenitis. She is on day 2 of her admission. EGD planned for later today Our plan for her is as follows Abdominal pain secondary to Pancreatitis and Duodenitis as noted on CT scan with normal lipase - For etiology - No h/o alc abuse, Gallstone: No bile duct dilatation on CT, possible stone has passed, no noted stones in gallbladder on CT Hypercalcemia: No evidence of hypercalcemia Hypertriglyceridemia: no evidence of elevated triglycerides - Lipase continues to trend downwards; was never elevated even at admission - MRCP contra-indicated due to pacemaker - GI following, will have EGD today Recommendations appreciated - NPO except meds - Morphine +/- Zofran if nauseated Pain well controlled with Toradol BID - Have held fluids today as per hypoxia noted below Afebrile overnight Blood cultures pending; UA normal Mild hypoxia this morning; CXR is negative for consolidation No antibiotics indicated at this time Acute Hypoxia - No respiratory distress - CXR shows small bilateral effusions without congestion - Will hold fluids for now, patient is cumulative > 3L positive - Titrate NC to goal sat > 94%; wean down as tolerated Afib with Pacer in place - Continue Metoprolol and Diltiazem - Contine ASA Hyperlipidemia - Continue atorvastatin Hx of Alcohol Abuse - protocol for at risk - Low index of suspicion for EtOH dependence and risk for withdrawal at this time DVT prophylaxis - SCD in case of procedure requirement Disposition - Med/Surg - Awaiting EGD Reviewed: Pt Seen/Exam by Me History abdominal pain improved - pain medication helping Constitutional: denies: fever Respiratory: negative: short of breath Cardiovascular: denies chest pain General Appearance: no apparent distress Respiratory: lungs clear, no respiratory distress Cardiovascular: regular rate, rhythm Gastrointestinal: normal bowel sounds, non tender, soft Neurologic/Psychiatric: alert, oriented x 3 Skin Characteristics: warm/dry Assessment/Plan I have reviewed the medical record and performed a history and physical examination of this patient today. I have discussed the case with Dr. Wright. The above note reflects my findings, conclusions, and recommendations.
--- NOTE | 2016-10-21 15:30 | History & Physical Bridge Note ---
H&P Re-Evaluation Bridge Note: I have examined the patient, reviewed the History & Physical and in the interval since the performance of the History & Physical I have noted the following changes of clinical significance: No changes noted AAOx3 Nls1s2 LungsCTA Abd soft NT/ND + BS - CCE
[2016-10-21] MEDS ORDERED: PROPOFOL IV EMULSION 10 MG/ML 20 ML VIAL IV ONE (15:45)
[2016-10-21] MEDS ORDERED: LIDOCAINE HCL 2% 2 ML VIAL (20MG/ML) ONE (15:45)
--- NOTE | 2016-10-21 15:49 | GI REPORT ---
Procedure Date: 10/21/2016 3:22 PM Procedure: Upper GI endoscopy Indications: Epigastric abdominal pain, Abnormal CT of the GI tract Medicines: Propofol per Anesthesia Complications: No immediate complications. Estimated blood loss: Minimal. Estimated Blood Loss: Estimated blood loss was minimal. Estimated blood loss was minimal. Procedure: Pre-Anesthesia Assessment: - Prior to the procedure, a History and Physical was performed, and patient medications and allergies were reviewed. The patient's tolerance of previous anesthesia was also reviewed. The risks and benefits of the procedure and the sedation options and risks were discussed with the patient. All questions were answered, and informed consent was obtained. Prior Anticoagulants: The patient has taken no previous anticoagulant or antiplatelet agents. ASA Grade Assessment: II - A patient with mild systemic disease. After reviewing the risks and benefits, the patient was deemed in satisfactory condition to undergo the procedure. After obtaining informed consent, the endoscope was passed under direct vision. Throughout the procedure, the patient's blood pressure, pulse, and oxygen saturations were monitored continuously. The scope was introduced through the mouth, and advanced to the fourth part of duodenum. The upper GI endoscopy was accomplished without difficulty. The patient tolerated the procedure well. Findings: The examined esophagus was normal. A small hiatus hernia was found. The proximal extent of the gastric folds (end of tubular esophagus) was 37 cm from the incisors. The hiatal narrowing was 39 cm from the incisors. The Z-line was 37 cm from the incisors. LA Grade B (one or more mucosal breaks greater than 5 mm, not extending between the tops of two mucosal folds) esophagitis with no bleeding was found 37 cm from the incisors. Biopsies were taken with a cold forceps for histology. Estimated blood loss was minimal. Verification of patient identification for the specimen was done by the physician and diesel truck technician using the patient's name and medical record number. The entire examined stomach was normal. Biopsies were taken with a cold forceps for histology. Estimated blood loss was minimal. Verification of patient identification for the specimen was done by the physician and diesel truck technician using the patient's name and medical record number. The duodenal bulb, first part of the duodenum, 2nd part of the duodenum, 3rd part of the duodenum and 4th part of the duodenum were normal. Biopsies were taken with a cold forceps for histology. Estimated blood loss was minimal. Verification of patient identification for the specimen was done by the physician and diesel truck technician using the patient's name and medical record number. The cardia and gastric fundus were normal on retroflexion. Retained gastric contents are not identified on this exam. A widely patent, non-obstructing and mild Schatzki ring (acquired) was found at the gastroesophageal junction. Impression: - Normal esophagus. - Small hiatus hernia. - LA Grade B esophagitis. Biopsied. - Normal stomach. Biopsied. - Normal duodenal bulb, first part of the duodenum, 2nd part of the duodenum, 3rd part of the duodenum and 4th part of the duodenum. Biopsied. Recommendation: - Return patient to hospital [facility] for ongoing care. - Advance diet as tolerated. - Continue present medications. - Await pathology results. - Perform CT scan (computed tomography) of the abdomen with contrast in 6 weeks. MD Alec Camp MD 10/21/2016 3:48:46 PM This report has been signed electronically. Note Initiated On: 10/21/2016 3:22 PM I attest to the content of the Intraoperative Record and orders documented therein, exceptions below
--- NOTE | 2016-10-21 16:20 | Anesthesiology Progress Note ---
Anesthesia Post Op Note Date & Time October 21, 2016 at 16:19 Vital Signs Pain Intensity: 6.0 Vital Signs Past 12 Hours Date Time Temp Pulse Resp B/P Pulse Ox O2 Delivery O2 Flow Rate FiO2 10/21/16 16:04 61 20 130/59 96 Nasal Cannula 4 10/21/16 15:47 62 20 115/54 95 Nasal Cannula 4 10/21/16 14:05 36.7 64 20 122/57 96 Nasal Cannula 4 10/21/16 10:25 96 Nasal Cannula 3.0 10/21/16 10:20 92 Nasal Cannula 2.0 10/21/16 10:15 89 Room Air 10/21/16 09:42 36.9 91 Room Air 10/21/16 09:24 37.6 68 18 113/69 90 Room Air 10/21/16 08:00 Room Air 10/21/16 07:36 37.6 68 18 113/69 90 Room Air Notes Mental Status: alert / awake / arousable, participated in evaluation Pt Amnestic to Procedure: Yes Nausea / Vomiting: adequately controlled Pain: adequately controlled Airway Patency, RR, SpO2: stable & adequate BP & HR: stable & adequate Hydration State: stable & adequate Anesthetic Complications: no major complications apparent
[2016-10-22] VITALS (9 sets, daily range): BP systolic 117–146; BP diastolic 53–81; PULSE 64–79; TEMP 36.6–36.9; O2SAT 91–98
[2016-10-22] MEDS ORDERED: FUROSEMIDE 20 MG TAB PO SCH
[2016-10-22] MEDS: KETOROLAC TROMETHAMINE 15 MG/ML VIAL IV. PRN (04:34)
[2016-10-22 07:17] LABS: HEMATOCRIT 32.7 % (37-47); MEAN CELL VOLUME 93.2 fL (80-100); MEAN CORPUSCULAR HEMOGLOBIN 31.3 pg (25-34); MEAN CORPUSCULAR HGB CONC 33.6 g/dl (32-36); PLATELET COUNT 207 K/uL (130-400); RED BLOOD COUNT 3.51 M/uL (4.2-5.4); WHITE BLOOD COUNT 7.81 K/uL (4.8-10.8)
[2016-10-22 07:56] LABS: BUN/CREATININE RATIO 13.1 (10-20); CALCIUM 8.6 mg/dl (8.5-10.1); CREATININE 0.57 mg/dl (0.60-1.20); POTASSIUM 3.6 mmol/L (3.5-5.1)
[2016-10-22 07:58] LABS: ALB/GLOB RATIO 0.8 (0.9-2)
[2016-10-22] MEDS: ATORVASTATIN 10 MG TAB PO SCH (08:34)
[2016-10-22] MEDS: ASPIRIN 81 MG ECTAB PO SCH (08:34)
[2016-10-22] MEDS: METOPROLOL SUCC 25MG EXT REL TAB PO SCH (08:34)
[2016-10-22] MEDS: DILTIAZEM HCL (TIAzac) 180 MG CAPCR PO SCH (08:35)
[2016-10-22] MEDS: PANTOprazole SOD 40 MG TAB PO SCH (08:35)
[2016-10-22] MEDS ORDERED: NURSING VERBAL MED ORDER ONE (09:30)
[2016-10-22] MEDS ORDERED: FUROSEMIDE INJ 40 MG in SYRINGE 0 ML IV ONE (10:00)
[2016-10-22] MEDS: MULTIVITAMIN TAB PO SCH (10:13)
[2016-10-22] MEDS ORDERED: KETO10TA PO (10:19)
[2016-10-22] MEDS ORDERED: ACET650S10 PO (10:19)
--- NOTE | 2016-10-22 10:26 | Discharge Instructions ---
Discharge Instructions Date of Service Oct 22, 2016. Admission Reason for Admission: Duodenitis, Pancreatitis Discharge Discharge Diagnosis / Problem: Pancreatitis Discharge Goals Goal(s): Decrease discomfort, Improve function, Diagnostic testing Activity Recommendations Activity Limitations: per Instructions/Follow-up section Lifting Limitations: gradually increase as tolerated Exercise/Sports Limitations: gradually increase as tolerated Shower/Bathe: no limitations . Instructions / Follow-Up Instructions / Follow-Up You were admitted for pancreatitis. We treated you with pain medication and IV fluids and gradually increased your diet as tolerated. You were seen by our GI service who did an EGD. They did perform biopsies and the results are still pending at this time but overall there were no gross abnormalities noted. We would like for you to repeat a CT of the abdomen in 6 weeks to follow the pancreatitis for resolution. We will have the result forwarded to your PCP and Dr. Alva from GI. As you go home resume all your regular activities as tolerated. We have prescribed you with medication to help with pain (oral Tylenol and Toradol). Please try to limit use of Toradol as it can irritated the GI tract, so make sure that you take with meals and not more than directed. When you were admitted, we did notice that you oxygen levels were slightly low. We did a chest x-ray which showed that you had a small amount of fluid in the lung. We gave you a diuretic to help offload the fluid. Please resume your regular diet as tolerated. Eat small quantities at first and gradually build up to your baseline. Do not consume any alcohol until after the repeat CT has been done and you have discussed the result with your PCP. If your symptoms fail to improve, acutely worsen, please seek medical attention immediately by either calling your primary care provider or going to your nearest emergency department. Otherwise, please see your primary care provider in 3-5 days to ensure that your symptoms continue to improve. It was a pleasure to be involved in your care and we wish you all the best. Current Hospital Diet Patient's current hospital diet: Full Liquid Diet Discharge Diet Recommended Diet: AHA Diet (Heart Healthy) Procedures Procedures Performed: EGD WITH BX Pending Studies Studies pending at discharge: yes List of pending studies: CT scan abdomen/pelvis to be done in 6 week EGD pathology samples pending Laboratory Results Hemoglobin A1c Test 10/20/16 08:55 Range/Units Estimated Average Glucose 114 mg/dl Hemoglobin A1c 5.6 4.5-5.6 % Lipid Panel Test 10/20/16 08:55 Range/Units Triglycerides Level 56 0-150 mg/dl Cholesterol Level 129 0-200 mg/dl HDL Cholesterol 66 mg/dl Cholesterol/HDL Ratio 2.0 LDL Cholesterol, Calculated 52 mg/dl Medical Emergencies . Who to Call and When: Medical Emergencies: If at any time you feel your situation is an emergency, please call 911 immediately. . Non-Emergent Contact Non-Emergency issues call your: Primary Care Provider Call Non-Emergent contact if: your pain is not controlled . . "Provider Documentation" section prepared by Eric Wright. . VTE Core Measure Inpt VTE Proph given/why not?: SCD's
[2016-10-22] MEDS ORDERED: POTASSIUM CHLORIDE 20 MEQ TABCR PO ONE (10:30)
[2016-10-22] MEDS ORDERED: OPTIRAY 320 IV PRN (15:45)
--- NOTE | 2016-10-22 16:19 | DIAGNOSTIC IMAGING REPORT ---
CHEST CTA for PULMONARY ARTERIES CT DOSE: 216.80 mGy.cm HISTORY: Hypoxia. Left calf pain. TECHNIQUE: Multiaxial CT images of the chest were performed following the intravenous administration of contrast to evaluate the pulmonary arteries. Maximal intensity projection images were also obtained. COMPARISON STUDY: Chest 10/21/2016. FINDINGS: Normal caliber thoracic aorta. No evidence for dissection. Small bilateral pleural effusions. The subsegmental pulmonary arteries within the right lower lobe are nondiagnostic due to motion artifact. Otherwise, there are no filling defects within the pulmonary arteries to suggest pulmonary embolus. Small amount of consolidation within the lower lobes posteriorly likely represents compressive atelectasis from the pleural effusions. No mediastinal or hilar lymphadenopathy. The liver and spleen are unremarkable. The heart is mildly enlarged. Left-sided pacemaker. IMPRESSION: 1. No evidence for pulmonary embolus with limitations as described above. 2. Small bilateral pleural effusions. 3. The heart is mildly enlarged. Electronically signed by: Cain Clemens M.D. 10/22/2016 4:18 PM Dictated Date/Time: 10/22/2016 4:08 PM
--- NOTE | 2016-10-22 17:37 | DIAGNOSTIC IMAGING REPORT ---
LEFT LOWER EXTREMITY VENOUS DOPPLER HISTORY: calf pain and hypoxia, rule out DVT COMPARISON STUDY: None. FINDINGS: There is normal compressibility, flow, and augmentation within the left lower extremity deep venous system. Within the left calf there is a thrombosed superficial vein. IMPRESSION: No DVT within the left lower extremity. Thrombosed superficial vein within the left calf. Electronically signed by: Cain Clemens M.D. 10/22/2016 5:35 PM Dictated Date/Time: 10/22/2016 5:35 PM
[2016-10-22] MEDS ORDERED: FURO-85 PO (18:15)
[2016-10-22] MEDS ORDERED: FUROSEMIDE 20 MG TAB PO ONE (18:30)
--- NOTE | 2016-10-22 18:41 | Discharge Summary ---
Discharge Summary Date of Service Oct 22, 2016. (Eric Wright MD) Discharge Summary Admission Date: October 19, 2016 at 22:05 Discharge Date: Oct 22, 2016 Discharge Disposition: Home Principal Diagnosis: Pancreatitis/Duodenitis Procedures: CT OF THE ABDOMEN AND PELVIS WITH CONTRAST CLINICAL HISTORY: Upper abdominal pain. COMPARISON STUDY: Right upper quadrant ultrasound August 13, 2015. TECHNIQUE: Following IV administration of 115 mL of Optiray-320, axial images of the abdomen and pelvis were obtained from the lung bases to the proximal femurs. Images were reviewed in the axial, sagittal, and coronal planes. IV contrast was administered without complication. CT DOSE: 282.09 mGy.cm FINDINGS: Pacer leads are partially imaged. The heart is mildly enlarged. There is no biliary or pancreatic ductal dilatation. There is mild periportal edema. The spleen, adrenal glands and kidneys are unremarkable. There are parapelvic cysts. Note is made of moderate infiltration centered on the uncinate process of the pancreas adjacent to the second and third portions of the duodenum. This extends into the root of the mesentery. There is no evidence for a bowel obstruction. No pneumatosis, free air or portal venous gas is present. The appendix is not visualized but there is no right lower quadrant inflammation. There is sigmoid diverticulosis without evidence for acute diverticulitis. No suspicious skeletal lesions identified. Major vasculature of the abdomen and pelvis is patent. IMPRESSION: 1. Moderate infiltration centered on the uncinate process of the pancreas, adjacent to the third portion of the duodenum and extending into the root of the mesentery. The appearance favors acute pancreatitis. Duodenitis could appear similar although is considered less likely. No mass identified however a follow-up CT in one month to ensure resolution is recommended to exclude this possibility. No biliary or pancreatic ductal dilatation. 2. Sigmoid diverticulosis without evidence for acute diverticulitis. Electronically signed by: Kirby Donaldson M.D. 10/19/2016 9:33 PM Dictated Date/Time: 10/19/2016 9:23 PM LEFT LOWER EXTREMITY VENOUS DOPPLER HISTORY: calf pain and hypoxia, rule out DVT COMPARISON STUDY: None. FINDINGS: There is normal compressibility, flow, and augmentation within the left lower extremity deep venous system. Within the left calf there is a thrombosed superficial vein. IMPRESSION: No DVT within the left lower extremity. Thrombosed superficial vein within the left calf. Electronically signed by: Cain Clemens M.D. 10/22/2016 5:35 PM Dictated Date/Time: 10/22/2016 5:35 PM CHEST CTA for PULMONARY ARTERIES CT DOSE: 216.80 mGy.cm HISTORY: Hypoxia. Left calf pain. TECHNIQUE: Multiaxial CT images of the chest were performed following the intravenous administration of contrast to evaluate the pulmonary arteries. Maximal intensity projection images were also obtained. COMPARISON STUDY: Chest 10/21/2016. FINDINGS: Normal caliber thoracic aorta. No evidence for dissection. Small bilateral pleural effusions. The subsegmental pulmonary arteries within the right lower lobe are nondiagnostic due to motion artifact. Otherwise, there are no filling defects within the pulmonary arteries to suggest pulmonary embolus. Small amount of consolidation within the lower lobes posteriorly likely represents compressive atelectasis from the pleural effusions. No mediastinal or hilar lymphadenopathy. The liver and spleen are unremarkable. The heart is mildly enlarged. Left-sided pacemaker. IMPRESSION: 1. No evidence for pulmonary embolus with limitations as described above. 2. Small bilateral pleural effusions. 3. The heart is mildly enlarged. Electronically signed by: Cain Clemens M.D. 10/22/2016 4:18 PM Dictated Date/Time: 10/22/2016 4:08 PM Consultations: Gastroenterology (Eric Wright MD) Medication Reconciliation New Medications: Acetaminophen (Tylenol) 650 Mg Supp 1 TAB PO Q8H PRN for Pain for 10 Days, #30 TAB Furosemide (Lasix) 20 Mg Tab 20 MG PO DAILY for 3 Days, #3 TAB Ketorolac (Toradol) 10 Mg Tab 10 MG PO TID PRN for Pain for 10 Days, #30 TAB Continued Medications: Aspirin (Aspirin Ec) 81 Mg Tab 81 MG PO DAILY Atorvastatin (Lipitor) 10 Mg Tab 10 MG PO Q2D, TAB Clobetasol Propionate (Temovate) 0.05 % Cre 1 APPLN TOP 2XWK PRN for UNDECIDED for 90 Days, GM Diltiazem Hcl Ext Rel (Tiazac) 180 Mg Capcr 180 MG PO DAILY Esomeprazole Magnesium (Nexium 24Hr) 20 Mg Cap 20 MG PO DAILY Metoprolol Succinate (Metoprolol Succinate ER) 25 Mg Tabcr 25 MG PO DAILY Multiple Vitamin (Multivitamin) 1 Tab Tab 1 TAB PO DAILY, TAB Tramadol (Ultram) 50 Mg Tab 50 MG PO Q12 PRN for Pain, TAB Discharge Exam Review of systems was otherwise negative unless stated above in the HPI Physical Exam: General Appearance: WD/WN, no apparent distress Eyes: normal inspection, EOMI ENT: hearing grossly normal, pharynx normal Neck: supple, no adenopathy, no JVD Respiratory/Chest: no respiratory distress, + pertinent finding (mildly diminished breath sound at bases) Cardiovascular: no gallop, no murmur, + irregularly irregular (rate controlled) Abdomen / GI: normal bowel sounds, non tender, soft Extremities: no pedal edema, + pertinent finding (mild left calf tenderness) Neurologic/Psychiatric: alert, normal mood/affect, oriented x 3 Skin: normal color, warm/dry, no rash Lymphatic: no adenopathy (Eric Wright MD) Review of Systems: Constitutional: No fever Respiratory: No shortness of breath Cardiovascular: No chest pain Abdomen: No pain Physical Exam: General Appearance: no apparent distress Respiratory/Chest: lungs clear, no respiratory distress Cardiovascular: regular rate, rhythm Abdomen / GI: normal bowel sounds, non tender, soft Neurologic/Psychiatric: alert, oriented x 3 Skin: warm/dry (Arelis Joe M.D.) Hospital Course Pleasant 71 year old female with an otherwise unremarkable past medical history apart from Afib and s/p pacemaker placement. She presented with 1 day of abdominal pain. CT as noted above showed involvement both of pancreas and duodenum. Interestingly normal lipase throughout hospital course. Her hospital course was as follows: Abdominal pain secondary to Pancreatitis and Duodenitis as noted on CT scan with normal lipase - For etiology No h/o alc abuse, though patient was empirically placed on AWSS but never required Lorazepam Gallstone: No bile duct dilatation on CT, possible stone has passed, no noted stones in gallbladder on CT Hypercalcemia: No evidence of hypercalcemia Hypertriglyceridemia: no evidence of elevated triglycerides - Lipase normal on admission and continues to trend downwards; was never elevated even at admission - MRCP contra-indicated due to pacemaker - EGD by Dr. Alva on 10/21/2016; biopsies performed, pathology pending; no gross abnormalities noted - NPO initially; diet advanced as tolerated - Pain control achieved with Toradol IV BID - Discharged on PO Toradol and Tylenol - Patient will have follow-up CT scan in 6 weeks to re-evaluate; results to be forwarded to Dr. Alva and PCP Acute Hypoxia - Developped after admission; No respiratory distress or chest pain; CXR on admission clear - Desaturated within 24 hours; required 3 L to maintain O2 > 94 %; repeat CXR showed mild pulmonary effusions bilaterally - IVF discontinued due to concern for iatrogenic fluid overload; treated with Lasix 40 mg IV x 1 - Reported very mild SOB as well as left calf pain CTPE negative U/S left leg negative for DVT; superficial thrombosis noted - Patient not short of breath at discharge though remained mildly hypoxic, low 90s; discharge with 2 days of PO lasix and instructions to follow-up with PCP to re-check oxygen saturations Afib with Pacer in place - Continued Metoprolol and Diltiazem - Contined ASA Hyperlipidemia - Continued atorvastatin DVT Prophylaxis - SCD Follow-up - Patient advised to see PCP in 3-5 days for follow-up - Patient will have repeat CT in 6 weeks Total Time Spent: Greater than 30 minutes This includes examination of the patient, discharge planning, medication reconciliation, and communication with other providers. (Eric Wright MD) I have reviewed the medical record and performed a history and physical examination of this patient today. I have discussed the case with Dr. Wright. The above note reflects my findings, conclusions, and recommendations. Total Time Spent: Greater than 30 minutes (40) (Arelis Joe M.D.) Discharge Instructions Please refer to the electronic Patient Visit Report (Discharge Instructions) for additional information. (Eric Wright MD) Follow-Up PCP in 3-5 days Repeat Abdo/Pelvis CT in 6 weeks (Eric Wright MD) Additional Copies To Alec Alva M.D.; Diego Rojas M.D.
== END 2016-10-22 19:10 | disposition home or self-care (01) | DRG 439 ==
LOC: ENRESERVDT → ENRESERVTM → C.EDB 19:28 → C.MS4W 22:05
PROVIDERS: ADMIT Hospitalist; ATTEND Family Medicine
PROC: 0DB58ZX Excision of Esophagus, Via Natural or Artificial Opening Endoscopic, Diagnostic (ICD-10-PCS; principal; 2016-10-21 13:58)
PROC: 0DB98ZX Excision of Duodenum, Via Natural or Artificial Opening Endoscopic, Diagnostic (ICD-10-PCS; principal; 2016-10-21 13:58)
PROC: 0DB68ZX Excision of Stomach, Via Natural or Artificial Opening Endoscopic, Diagnostic (ICD-10-PCS; principal; 2016-10-21 13:58)
DX: K85.90 Acute pancreatitis without necrosis or infection, unspecified (principal); J90 Pleural effusion, not elsewhere classified; K29.80 Duodenitis without bleeding; K44.9 Diaphragmatic hernia without obstruction or gangrene; I48.91 Unspecified atrial fibrillation; R09.02 Hypoxemia; E78.5 Hyperlipidemia, unspecified; I10 Essential (primary) hypertension; R93.3 Abnormal findings on diagnostic imaging of other parts of digestive tract; K20.9 Esophagitis, unspecified; K22.2 Esophageal obstruction; K21.9 Gastro-esophageal reflux disease without esophagitis; Z79.82 Long term (current) use of aspirin; Z95.0 Presence of cardiac pacemaker; Z79.899 Other long term (current) drug therapy; Z86.59 Personal history of other mental and behavioral disorders; Z79.891 Long term (current) use of opiate analgesic

== ENCOUNTER → 2016-10-30 | Outpatient (CLI) | payer BC, OTHER ==
[~2016-10-30] MED LIST changes: +ACET650S10 PO; -ASPEC81; +ASPI81TA28 PO; +ATOR10TA82 PO; +CLOB-77 TOP; +ESOM1CAP24 PO; +KETO10TA PO; +MULTTAB58 PO; +TPRSR/25 PO; +TRAM-10 PO
[2016-10-30 13:33] LABS: BASO % 1.4 %; BASO ABS # 0.06 K/uL (0-0.2); COMPLETE YES; EOS % 2.2 %; HEMATOCRIT 41.4 % (37-47); IG% 0.7 %; LYMPH % 36.4 %; LYMPH ABS # 1.51 K/uL (1.2-3.4); MEAN CELL VOLUME 93.9 fL (80-100); MEAN CORPUSCULAR HEMOGLOBIN 31.5 pg (25-34); MEAN CORPUSCULAR HGB CONC 33.6 g/dl (32-36); MEAN PLATELET VOLUME 9.5 fL (7.4-10.4); MONO % 12.8 %; NEUT % 46.5 %; PLATELET COUNT 421 K/uL (130-400); RED BLOOD COUNT 4.41 M/uL (4.2-5.4); WHITE BLOOD COUNT 4.15 K/uL (4.8-10.8)
[2016-10-30 13:48] LABS: ALT/SGPT 35 U/L (12-78); AMYLASE 46 U/L (25-115); BLOOD UREA NITROGEN 13 mg/dl (7-18); BUN/CREATININE RATIO 14.6 (10-20); CARBON DIOXIDE 28 mmol/L (21-32); CHLORIDE 104 mmol/L (98-107); CREATININE 0.87 mg/dl (0.60-1.20); GLUCOSE 88 mg/dl (70-99); POTASSIUM 4.5 mmol/L (3.5-5.1); SODIUM 139 mmol/L (136-145)
[2016-10-30 13:51] LABS: ALB/GLOB RATIO 0.9 (0.9-2); ALKALINE PHOSPHATASE 88 U/L (45-117); AST/SGOT 21 U/L (15-37)
[2016-10-30 14:47] LABS: CALCIUM 9.1 mg/dl (8.5-10.1)
== END ==
LOC: C.LABPVFM 08:55
PROVIDERS: ATTEND Internal Medicine
DX: I49.5 Sick sinus syndrome (principal); K85.90 Acute pancreatitis without necrosis or infection, unspecified; D72.819 Decreased white blood cell count, unspecified

== ENCOUNTER → 2016-11-03 | Outpatient (CLI) | payer BC ==
[~2016-11-03] MED LIST changes: -KETO10TA PO
--- NOTE | 2016-11-03 14:43 | MAMMOGRAPHY REPORT ---
BILATERAL DIGITAL SCREENING MAMMOGRAM WITH CAD: 11/03/2016 CLINICAL HISTORY: Routine screening. Patient has no complaints. TECHNIQUE: Bilateral CC and MLO views were obtained. Current study was also evaluated with a Comput er Aided Detection (CAD) system. COMPARISON: Comparison is made to exams dated: 10/31/2015 mammogram, 10/02/2014 mammogram, 08/31/2013 ma mmogram, 08/30/2012 mammogram, 08/25/2011 mammogram, and 07/21/2010 mammogram - [facility]. BREAST COMPOSITION: There are scattered areas of fibroglandular density in both breasts. FINDINGS: A pacemaker projects over the superior left breast and pectoralis muscle on the MLO view. There are bilateral benign rim calcifications. No new suspicious mass, architectural distortion or c luster of microcalcifications is seen. IMPRESSION: ACR BI-RADS CATEGORY 1: NEGATIVE There is no mammographic evidence of malignancy. A 1 year screening mammogram is recommended. The pa tient will receive written notification of the results. Approximately 10% of breast cancers are not detected with mammography. A negative mammographic report should not delay biopsy if a clinically suggestive mass is present. Marlene Rios M.D. ay/:11/03/2016 14:07:59 [employer] Architect: Terra HERNANDEZ(Maranda)(Julianna), [facility] letter sent: Normal 1/2 BI-RADS Code: ACR BI-RADS Category 1: Negative
== END | disposition home or self-care (01) ==
LOC: C.MAMM 13:33
PROVIDERS: ATTEND Obstetrics & Gynecology
DX: Z12.31 Encounter for screening mammogram for malignant neoplasm of breast (principal)

== ENCOUNTER → 2016-12-04 | Outpatient (CLI) | payer BC ==
[~2016-12-04] MED LIST changes: -ATOR10TA82 PO; +ATOR10TA88 PO; +OPTIRAY 320 IV PRN
--- NOTE | 2016-12-04 12:31 | DIAGNOSTIC IMAGING REPORT ---
CT ABD/PELVIS IV AND ORAL CONT CLINICAL HISTORY: PANCREATITIS COMPARISON STUDY: 10/19/2016 TECHNIQUE: Following the IV administration of 92 mL of Optiray-320, CT scan of the abdomen and pelvis was performed from the lung bases to the proximal femurs. Images are reviewed in the axial, sagittal, and coronal planes. IV contrast was administered without complication. CT DOSE: FINDINGS: Lower chest: There are mild dependent atelectatic changes. Liver: There is a stable 26 mm hypodense lesion within the left hepatic lobe. An MRI scan might be considered for further characterization. Gallbladder: Unremarkable. Spleen: Normal in size and attenuation. Pancreas: There is infiltration of the fat surrounding the head of the pancreas extending to the descending duodenum. This is improved when compared the preceding examination. There is fatty infiltration of the pancreatic head. There is a 16 mm pancreatic head nodule versus residual normal pancreatic tissue. An MRI would be of benefit in follow-up.. Adrenal glands: Unremarkable. Kidneys: There is symmetric renal cortical enhancement. The kidneys are normal in size without hydronephrosis. Bowel: There are no transition zones to indicate bowel obstruction. There is colonic diverticulosis. There are no acute peridiverticular inflammatory changes. There is no acute appendicitis. Peritoneum: There is no intraperitoneal free air or abdominal ascites. Vasculature: The abdominal aorta is normal in course and caliber. Adenopathy: None. Pelvic viscera: The bladder, and pelvic viscera are unremarkable. Skeletal structures: No destructive osseous lesions are seen. IMPRESSION: 1. Resolving inflammatory changes centered on the pancreatic head with extension to the descending duodenum. 2. 26 mm hypodense lesion within the left hepatic lobe. An MRI is recommended for further characterization 3. 16 mm pancreatic head nodule versus residual normal pancreatic tissue in the setting of atrophy. Again MRI would be useful in follow-up. Electronically signed by: Dean Almanza M.D. 12/04/2016 12:29 PM Dictated Date/Time: 12/04/2016 12:21 PM
== END | disposition home or self-care (01) ==
LOC: C.CTS 10:59
PROVIDERS: ATTEND Student in an Organized Health Care Education/Training Program
DX: K85.90 Acute pancreatitis without necrosis or infection, unspecified (principal); K29.80 Duodenitis without bleeding